=== PATIENT | male | born 1950 ===

== ENCOUNTER → 2016-11-13 | Outpatient (CLI) | payer SELFPAY ==
--- NOTE | 2016-11-13 13:53 | CT ---
EXAM DESCRIPTION: Abdoment/Pelvis w/o Contrast CLINICAL HISTORY: 66 years, Male, LEFT SIDED FLANK PAIN R10.9 COMPARISON: None. TECHNIQUE: CT of the abdomen and pelvis is performed according to our non contrast protocol. FINDINGS: The lung bases are clear. Liver, spleen, and pancreas are unremarkable. Multiple calcified gallstones in the gallbladder. The right kidney is unremarkable. Mild left hydronephrosis and left hydroureter secondary to 2.9 mm stone impacted at the left ureterovesical junction. There is no lymphadenopathy, inflammation, or free fluid observed. IMPRESSION: 1. Left ureterolithiasis with mild obstruction 2. Cholelithiasis This exam was performed according to our departmental dose-optimization program, which includes automated exposure control, adjustment of the mA and/or kV according to patient size and/or use of iterative reconstruction technique. Electronically signed by: Arnel Bowden MD 11/13/2016 1:52 PM CDT
== END | disposition home or self-care (01) ==
LOC: RAD 13:14
PROVIDERS: ATTEND Nurse Practitioner
DX: R10.9 Unspecified abdominal pain (principal)